=== PATIENT | female | born 1945 | race Caucasian/White ===

== ENCOUNTER 2017-04-19 12:02 | Emergency (ER) | payer OTHER ==
[~2017-04-19] VITALS: Ht 154.9 cm; Wt 96.0 kg
[~2017-04-19 12:02] MED LIST: 1-ME1LIQ PO; ATEN1TAB74 PO; PERC5TAB12 PO; PRIL10CA PO; PROT40TA PO; TRAZ100 PO
[2017-04-19 12:11] VITALS: BP 178/78; PULSE 82; RESP 15; TEMP 97.7; O2SAT 96
[2017-04-19] MEDS ORDERED: PRIL20TA2 P-ARTICULR (12:21)
[2017-04-19] MEDS ORDERED: ATEN50TA PO (12:21)
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
[2017-04-19 13:13] VITALS: BP 168/76; PULSE 74; RESP 18; O2SAT 98
--- NOTE | 2017-04-19 13:32 | RADRPT ---
EXAM DATE/TIME: 04/19/2017 12:59 [facility] COMPARISON: SPINE LUMBAR [facility]TD (AP & LAT), September 16, 2013, 22:45. INDICATIONS : Fall 1 week ago, lower left back pain, down left leg. MEDICAL HISTORY : None. SURGICAL HISTORY : None. ENCOUNTER: Initial ACUITY: 1 week PAIN SCORE: 8/10 LOCATION: Left low back FINDINGS: There is loss of disc space height at L4-5 and L5-S1. There is good preservation of vertebral body h eights. There are moderate changes of facets at L4-5 and L5-S1. Acute compression is not visualized . Moderate vascular calcifications are noted. CONCLUSION: Degenerative changes are L4-5 L5-S1 Lumbar spinal stenosis it would be consideration. Bartolome Hamilton MD FACR on April 19, 2017 at 13:30 Board Certified Radiologist. This report was verified electronically.
[2017-04-19] MEDS ORDERED: BACL10TA PO (13:38)
[2017-04-19] MEDS ORDERED: PRED20 PO (13:38)
== END 2017-04-19 13:58 | disposition home or self-care (01) ==
LOC: PHEFT 12:02
DX: M54.42 Lumbago with sciatica, left side (principal); W18.11XA Fall from or off toilet without subsequent striking against object, initial encounter; I10 Essential (primary) hypertension; J44.9 Chronic obstructive pulmonary disease, unspecified; K21.9 Gastro-esophageal reflux disease without esophagitis
CPT/HCPCS: 72100; 99284

== ENCOUNTER 2017-12-07 11:26 | Emergency (ER) | payer OTHER | END 2017-12-07 14:01 | disposition home or self-care (01) | LOC: PHED 11:26 | DX: M17.11 Unilateral primary osteoarthritis, right knee (principal); I10 Essential (primary) hypertension; J44.9 Chronic obstructive pulmonary disease, unspecified; K21.9 Gastro-esophageal reflux disease without esophagitis; Z79.899 Other long term (current) drug therapy; Z88.6 Allergy status to analgesic agent; Z88.5 Allergy status to narcotic agent; Z88.8 Allergy status to other drugs, medicaments and biological substances | CPT/HCPCS: 93971; 99284 ==